=== PATIENT | female | born 1975 | race Caucasian/White ===

== ENCOUNTER 2017-09-05 16:57 | Emergency (ER) | payer MEDICAID | END 2017-09-05 19:25 | disposition left against medical advice (07) | LOC: ED 19:19 | DX: R07.0 Pain in throat (principal); Z53.21 Procedure and treatment not carried out due to patient leaving prior to being seen by health care provider ==

== ENCOUNTER 2018-09-02 19:12 | Emergency (ER) | payer MEDICAID ==
[~2018-09-02] VITALS: Ht 157.5 cm; Wt 81.0 kg
[2018-09-02 19:15] VITALS: BP 143/84
[2018-09-02] MEDS ORDERED: METHOCARBAMOL 750 MG TABLET ONE (21:24)
[2018-09-02] MEDS ORDERED: KETOROLAC 30 MG/1 ML ONE (21:24)
[2018-09-02] MEDS ORDERED: METHOCARBAMOL 750 MG TABLET PO ONE (21:30)
[2018-09-02] MEDS ORDERED: KETOROLAC 30 MG/1 ML IM ONE (21:30)
== END 2018-09-02 21:45 ==
LOC: ED 21:00
DX: S39.012A Strain of muscle, fascia and tendon of lower back, initial encounter (principal); N28.89 Other specified disorders of kidney and ureter; I10 Essential (primary) hypertension; X58.XXXA Exposure to other specified factors, initial encounter; Y93.89 Activity, other specified; Y92.89 Other specified places as the place of occurrence of the external cause; Y99.8 Other external cause status
CPT/HCPCS: 72110; 96372; 99283; J1885

== ENCOUNTER 2018-10-30 20:32 | Emergency (ER) | payer MEDICAID ==
[~2018-10-30] VITALS: Ht 154.9 cm; Wt 76.5 kg
[2018-10-30] MEDS ORDERED: METOCLOPRAMIDE 5 MG/ML, 2ML IVPush ONE (22:00)
[2018-10-30] MEDS ORDERED: DIPHENHYDRAMINE 50 MG/ML, 1ML IVPush ONE (22:00)
[2018-10-30] MEDS ORDERED: SODIUM CHLORIDE FLUSH 10ML SYR IVF ONE (22:00)
[2018-10-30] MEDS ORDERED: KETOROLAC 30 MG/1 ML IVPush ONE (22:00)
[2018-10-30] MEDS ORDERED: METOCLOPRAMIDE 5 MG/ML, 2ML ONE (22:27)
[2018-10-30] MEDS ORDERED: KETOROLAC 30 MG/1 ML ONE (22:27)
[2018-10-30] MEDS ORDERED: DIPHENHYDRAMINE 50 MG/ML, 1ML ONE (22:27)
[2018-10-30] MEDS ORDERED: LORazepam 2 MG/ML, 1ML ONE (22:42)
[2018-10-30 22:46] LABS: BASOPHILS # (AUTO) 0.18 x10^3/uL (0-0.1); BASOPHILS % (AUTO) 2 % (0-1); EOSINOPHILS # (AUTO) 0.24 x10^3/uL (0-0.4); EOSINOPHILS % (AUTO) 2 % (1-7); LYMPHOCYTES # (AUTO) 3.89 x10^3/uL (1-3.4); LYMPHOCYTES % (AUTO) 32 % (22-44); MD NO; MEAN CORPUSCULAR HEMOGLOBIN 31.3 pg (27.0-34.8); MEAN CORPUSCULAR HGB CONC 34.9 g/dL (32.4-35.8); MEAN CORPUSCULAR VOLUME 89.8 fL (80-100); MEAN PLATELET VOLUME 8.9 fL (7.4-10.4); MONOCYTES # (AUTO) 0.58 x10^3/uL (0.2-0.8); MONOCYTES % (AUTO) 5 % (2-9); NEUTROPHILS # (AUTO) 7.42 x10^3/uL (1.8-6.8); NEUTROPHILS % (AUTO) 60 % (42-75); PLATELET COUNT 297 x10^3/uL (130-400); RED CELL DISTRIBUTION WIDTH 12.9 % (9.6-15.2)
--- NOTE | 2018-10-30 22:46 | NUR ---
PT BACK FROM CT SCAN. IV STARTED AND BLOOD TO LAB. CONSENT FOR LP SIGNED AND PT WITH IFV ORDERED.
[2018-10-30 22:49] VITALS: BP 141/83
[2018-10-30 22:56] LABS: ALANINE AMINOTRANSFERASE 26 U/L (12-78); ALBUMIN 4.3 g/dL (3.4-5.0); ANION GAP 5 mmol/L (5-15); CALCIUM 8.7 mg/dL (8.5-10.1); CHLORIDE 109 mmol/L (98-107); CREATININE 0.95 mg/dL (0.55-1.02)
[2018-10-30 23:00] LABS: ALKALINE PHOSPHATASE 89 U/L (45-117); BILIRUBIN,TOTAL 0.2 mg/dL (0.2-1.0); TOTAL PROTEIN 7.3 g/dL (6.4-8.2)
[2018-10-30] MEDS ORDERED: LORazepam 2 MG/ML, 1ML IVPush ONE (23:00)
[2018-10-30] MEDS ORDERED: LIDOCAINE-MPF 1%, 2ML ONE (23:03)
--- NOTE | 2018-10-30 23:17 | NUR ---
ERP TO BEDSIDE FOR LP CONSENT SIGNED.
[2018-10-30 23:46] LABS: GLUCOSE, CSF 66 mg/dL (40-80); TOTAL PROTEIN,CSF 24 mg/dL (15-45)
--- NOTE | 2018-10-31 00:01 | NUR ---
PT RESTING AWAITING FINAL RESULTS FROM LP.
== END 2018-10-31 00:53 | disposition home or self-care (01) ==
LOC: ED 21:42
DX: G43.C0 Periodic headache syndromes in child or adult, not intractable (principal); I10 Essential (primary) hypertension; F17.200 Nicotine dependence, unspecified, uncomplicated
CPT/HCPCS: 36415; 62270; 70450; 80053; 82945; 84157; 84703; 85025; 87070; 87205; 89051; 93005; 96374; 96375; 99284; J1200; J1885; J2060; J2765

== ENCOUNTER 2021-03-02 22:18 | Emergency (ER) | payer MEDICAID ==
[~2021-03-02] VITALS: Ht 154.9 cm; Wt 77.3 kg
[2021-03-02 22:22] VITALS: BP 181/105
== END 2021-03-02 22:45 | disposition home or self-care (01) ==
LOC: ED 22:45
DX: B34.9 Viral infection, unspecified (principal); Z20.822 Contact with and (suspected) exposure to COVID-19; I10 Essential (primary) hypertension
CPT/HCPCS: 99283; U0003; U0005